=== PATIENT | male | born 1950 | race Caucasian/White ===

== ENCOUNTER 2020-11-05 02:33 | Inpatient (IN) | payer MEDICARE, SELFPAY ==
[2020-11-05] VITALS (83 sets, daily range): BP systolic 65–141; BP diastolic 51–96; PULSE 0–137; RESP 15–42; TEMP 35.9–36.2; O2SAT 87–99; BMI 28.3
--- NOTE | ~2020-11-05 | XR_ITS ---
EXAMINATION: XR chest 1V portable INDICATION: Respiratory failure TECHNIQUE: Portable AP chest at 0549 hours COMPARISON: 11/05/2020 FINDINGS: The endotracheal tube ends approximately 1.1 cm above the terese. The nasogastric tube is i n the stomach. A right internal jugular central venous catheter ends with its tip in the right atrium . There is elevation of the right hemidiaphragm. Patchy bilateral airspace opacities have developed. There is no pleural effusion or pneumothorax. The cardiomediastinal silhouette is stable. Healed righ t clavicle and right rib fractures are noted. IMPRESSION: 1. Patchy bilateral airspace opacities, consistent with atelectasis versus pneumonia. Reviewed, dictated and finalized at location A. E COMPTROLLER IMPRESSION: 1. Patchy bilateral airspace opacities, consistent with atelectasis versus pneu monia.
--- NOTE | ~2020-11-05 | CT_ITS ---
EXAMINATION: CT brain wo con INDICATION: Altered mental status COMPARISON: None TECHNIQUE: Standard unenhanced head CT. The dose-length product (DLP) was 681.00 mGy-cm. The mA was a djusted according to patient size. Iterative reconstruction technique was employed. FINDINGS: There are areas of prior infarction in the occipital lobes and left basal ganglia. There is no acute intraparenchymal hemorrhage. No evidence of mass lesion. No evidence of acute infarction. T here is mild periventricular and subcortical hypodensity probably related to small vessel ischemic di sease. There is mild prominence of the sulci and ventricles related to cerebral atrophy. Intracranial calcified cerebral atherosclerosis is noted. There are no extra-axial collections. There is no mass effect or midline shift. The orbits and soft tissues are unremarkable. There is mild mucosal thicken ing of the paranasal sinuses. IMPRESSION: 1. Areas of prior reduction without acute intracranial abnormality. 2. Age related findings. Reviewed, dictated and finalized at location A. WALKER
--- NOTE | ~2020-11-05 | US_ITS ---
EXAMINATION: US renal BI EXAM DATE: 11/05/2020 14:43 INDICATION: Acute kidney insufficiency. TECHNIQUE: Multiple grayscale and Doppler images of the kidneys were obtained (by a technologist who performed the scan) and subsequently reviewed. Comparison is made to prior examination from 11/05/2020 . FINDINGS: Right kidney: There is normal contour and echogenicity. It measures 12.8 x 6.0 x 7.0 centimeters. Th ere is no nephrolithiasis. There is no hydronephrosis. Left kidney: There is normal contour and echogenicity. It measures 10.7 x 5.7 x 6.5 centimeters. The re is nephrolithiasis. There is no hydronephrosis. Bladder unremarkable. IMPRESSION: 1. Bilateral nephrolithiasis. 2. No hydronephrosis. Reviewed, dictated and finalized at location B. NE OILER
--- NOTE | ~2020-11-05 | XR_ITS ---
EXAMINATION: XR abdomen NG/feed tube insert EXAM DATE: 11/05/2020 08:30 INDICATION: NG insertion. TECHNIQUE: Frontal projection(s) of the abdomen for interpretation. There is no prior study for [facility]os[facility] edwards. FINDINGS: Nasogastric tube and side-port both project over gastric bubble, adequate. Couple of left abdominal calcifications, large left nephrolithiasis identified on CT same date. Nonobstructive bowel gas pattern. There are mild bony degenerative changes. IMPRESSION: Feeding in position. Left nephrolithiasis. Reviewed, dictated and finalized at location B. RVISOR SHAVING AND SPLITTING
--- NOTE | ~2020-11-05 | XR_ITS ---
EXAMINATION: XR chest port-a-cath/central INDICATION: Central line and endotracheal tube insertion TECHNIQUE: Portable AP chest at 0629 hours COMPARISON: None available FINDINGS: The endotracheal tube ends 1.3 cm above the terese. A right internal jugular central venous catheter ends with its tip in the proximal right atrium. There is elevation of the right hemidiaphra gm. Linear opacities of the right lung base likely reflect atelectasis or scarring. There appears to be pleural thickening or small pleural effusion on the right. No acute airspace opacities are identif ied. There is no pneumothorax. Old right clavicle and right rib fractures are noted noted. IMPRESSION: 1. Endotracheal tube 1.3 cm above the terese. 2. Right internal jugular central venous catheter was tip in the right atrium. 3. Atelectasis versus scarring in the right lung base. Reviewed, dictated and finalized at location A. ETING RESEARCH INTERN
--- NOTE | ~2020-11-05 | CT_ITS ---
EXAMINATION: CT abdomen pelvis wo con EXAM DATE: 11/05/2020 07:59 INDICATION: Nausea and vomiting. TECHNIQUE: Spiral CT of the abdomen and pelvis was performed without contrast. Axial, coronal and s agittal images were reviewed. The dose-length product (DLP) for this examination was 1382.19 mGy-cm. The exposure was tailored according to patient size (auto mA exposure control), and iterative recon struction (ASIR) was used as additional dose reduction technique. There is no prior study for compar adam. FINDINGS: There is multi segmental right lower lobe atelectasis. Superimposed pneumonia also possible . There are liver and splenic granulomata. There is a right adrenal gland myelolipoma measuring 3.7 cm. Pancreas is unremarkable. The gallbladder is moderately distended. No calcified cholelithiasis o r pericholecystic inflammation. Sizable bilateral nephrolithiasis, larger stone burden on the left. N o ureteral stones or hydronephrosis. The prostate is unremarkable. The bladder is collapsed with Fol ey catheter balloon anchor inside. There is no retroperitoneal or pelvic lymphadenopathy. There is mild scattered arteriosclerotic disease. The appendix is normal. The stomach and small bowel are unremarkable. There is mild scattered coloni c diverticulosis. There is no adjacent inflammatory change to suggest diverticulitis. No free intra peritoneal gas. The heart is normal in size. There are no pericardial or pleural effusions. The l can bases are unremarkable. There are no osteoblastic or osteolytic lesions identified. There are ol d right rib fractures. IMPRESSION: 1. Multi segmental right basilar atelectasis and possibly superimposed pneumonia. 2. Moderately distended but otherwise unremarkable gallbladder. Consider ultrasound if indicated cli nically. 3. Bilateral nephrolithiasis. 4. Mild colonic diverticulosis. 5. Right adrenal myelolipoma. Reviewed, dictated and finalized at location B. UTER PERIPHERAL EQUIPMENT OPERATOR IMPRESSION: 1. Multi segmental right basilar atelectasis and possibly superimposed pneumon ia. 2. Moderately distended but otherwise unremarkable gallbladder. Consider ultra sound if indicated clinically. 3. Bilateral nephrolithiasis. 4. Mild colonic diverticulosis. 5. Right adrenal myelolipoma.
--- NOTE | ~2020-11-05 | US_ITS ---
EXAMINATION: US abdomen limited DATE: 11/05/2020 10:16 INDICATION: Right upper quadrant pain TECHNIQUE: Multiple grayscale and Doppler ultrasound images of the abdomen were obtained. COMPARISON: CT from today FINDINGS: The head and body of the pancreas are normal. The pancreatic tail is obscured by bowel gas. The liver is normal with normal echogenicity and echotexture. No surface nodularity. Normal hepatope patricia flow in the main portal vein. The gallbladder is distended. There are multiple stones in the gall bladder. No gallbladder wall thickening or pericholecystic fluid are seen. The normal common bile yunior t measures 5 mm. Sonographic Roche sign cannot assess due to patient sedation and intubation. IMPRESSION: 1. Cholelithiasis and gallbladder distention without definite evidence of wall thickening or perichol ecystic fluid. Findings are equivocal for cholecystitis. Consider nuclear hepatobiliary scan if there is high clinical concern for cholecystitis. Reviewed, dictated and finalized at location A. BOX INSPECTOR IMPRESSION: 1. Cholelithiasis and gallbladder distention without definite evidence of wall thickening or pericholecystic fluid. Findings are equivocal for cholecystitis. Consider nuclear hepatobiliary scan if there is high clinical concern for eli cystitis.
--- NOTE | 2020-11-05 02:39 | ED.NAVMDI ---
HPI - Nausea/Vomiting/Diarrhea General Chief complaint: Nausea/Vomiting/Diarrhea Stated complaint: brown emesis all day Time Seen by Provider: 11/05/20 07:26 History of Present Illness HPI Narrative: History limited by mental status. 10 yo male w/ h/o TBI brought in to the ED by EMS from [facility] to the ED for nausea and vomiting. They report shaina he has been having episodes of brown emesis throughout the day yesterday. He reportedly received zofran around 8 PM. On arrival to the ED he denies any complaints. He is not able to provide any history. A&O x1 at baseline. Related Data Home Medications Medication Instructions Recorded Confirmed albuterol sulfate [Ventolin HFA] INHALATION 11/05/20 aspirin 81 mg PO DAILY 11/05/20 atorvastatin 40 mg PO DAILY 11/05/20 lisinopril 10 mg PO DAILY 11/05/20 metformin 500 mg PO BID 11/05/20 tamsulosin [Flomax] 0.4 mg PO 11/05/20 Allergies Allergy/AdvReac Type Severity Reaction Status Date / Time NKDA Allergy Unknown Other Uncoded 11/05/20 02:43 NKFA Allergy Unknown Other Uncoded 11/05/20 02:43 NA Allergy Other Uncoded 11/05/20 02:43 Review of Systems Review of Systems: ROS unobtainable: Yes unobtainable due to mental status Cardiovascular: Cardiovascular: Denies chest pain Respiratory: Respiratory: Denies dyspnea Gastrointestinal: Gastrointestinal: Denies nausea PMFSH Past Medical History Medical History (Updated 11/05/20 @ 13:42 by Cyndi Haley NP) BPH (benign prostatic hyperplasia) DM2 (diabetes mellitus, type 2) History of fracture of clavicle History of humerus fracture History of rib fracture Hyperlipidemia TBI (traumatic brain injury) Family History Family History Other Unknown family medical history Social History Social History (Updated 11/05/20 @ 13:45 by Cyndi Haley NP) Social History: patient is listed as being . He is from [facility] otherwise known as [facility]. smoking history and drinking history unknown. Unable to obtain information from the patient as he is intubated. On his half-way papers he is listed as a full code. Smoking status: Unknown if ever smoked Alcohol intake: unknown Substance use: unknown Gender identity (if verbalized by the patient): Male Sexual Orientation (if Verbalized by the Patient): Straight or Heterosexual Spiritual care concerns: No Exam Const: General: no acute distress, alert and ill appearing Nutritional Appearance: obese HENMT: Head: normal to inspection Eyes: Pupils: Equal, round and reactive pupils present Resp: Effort & Inspection: normal respiratory effort Auscultation: clear to auscultation bilaterally Cardio: Rate: tachycardic Rhythm: regular rhythm GI: GI Palp: Yes Soft to palpation and No Tenderness to palpation present (GI) Skin: General skin exam: pallor Other: extensive scarring to abdomen Neuro: General: moves all extremities and CN's II-XI intact bilaterally Extrem: General: normal to inspection Psych: Other: Flat affect Course Course Emergency Course: He initially looked ill, but stable. Later he suddenly became tachycardic and tachypneic and had a sudden drop in BP. ABG showed partially compensated metabolic acidosis. He had a decline in mental status and was no longer adequately protecting his airway, so He was intubated for airway protection. A central line was placed and Levophed was started. Vital Signs Vital signs: Vital Signs Temperature 35.9 C L 11/05/20 02:36 Pulse Rate 108 H 11/05/20 02:36 Respiratory Rate 19 11/05/20 02:36 Blood Pressure 113/80 11/05/20 02:36 Pulse Oximetry 90 11/05/20 02:36 Temperature 36.2 C L 11/05/20 20:00 Pulse Rate 134 H 11/05/20 22:00 Respiratory Rate 24 H 11/05/20 22:00 Blood Pressure 105/92 H 11/05/20 22:21 Pulse Oximetry 96 11/05/20 22:00 Procedures Central Line Placement Right IJ: Central
[2020-11-05] MEDS: SODIUM CHLORIDE 0.9% IV 1,000 ML 999 ML IV CONT ×4 (02:51→15:20)
[2020-11-05] MEDS: ONDANSETRON INJ 4 MG/2 ML VIAL IV PUSH ×2 (02:52→05:12)
[2020-11-05 03:27] LABS: Basophils Percent Auto 0.2 % (0.2-1.2); Eosinophils Percent Auto 0.1 % (0-4.4); Hematocrit 52.4 % (42.0-52.0); Hemoglobin 17.6 g/dL (14.0-18.0); Immature Granulocyte Absolute 0.07 K/mm3 (0.00-0.031); Immature Granulocyte Percent A 0.5 % (0-0.5); Lymphocytes Absolute Auto 0.74 K/mm3 (0.9-3.2); Lymphocytes Percent Auto 5.2 % (18.3-44.2); Mean Corpuscular HGB Conc 33.6 g/dl (32-36); Mean Corpuscular Hemoglobin 28.5 pg (26-34); Mean Corpuscular Volume 84.9 fl (80-100); Mean Platelet Volume 11.7 fl (7.4-10.4); Monocytes Absolute Auto 0.9 K/mm3 (0.1-0.6); Monocytes Percent Auto 6.6 % (2.6-8.5); Neutrophils Absolute Auto 12.4 K/mm3 (1.3-6.7); Neutrophils Percent Auto 87.4 % (45.5-73.1); Platelet Count Result 244 k/mm3 (150-375); Red Blood Count 6.17 M/mm3 (4.6-6.20); Red Cell Distribution Width 14.4 % (11.5-14.5); White Blood Count 14.2 K/mm3 (4.5-10.0)
[2020-11-05 03:40] LABS: Add Urine Microscopic? YES; Appearance Urine Cloudy (Clear); Bacteria Urine 4+ /hpf; Bilirubin Urine Negative (Negative); Blood Urine 3+ (Negative); Glucose Urine UA Negative (Negative); Ketones Urine Negative (Negative); Leukocyte Esterase Ur 3+ LEU/UL (Negative); Nitrate Urine Negative (Negative); Protein Urine 2+ mg/dL (Negative); RBC Urine >75 /hpf (0-2); Specific Grav Ur 1.015 (1.001-1.035); Urobilinogen Urine Negative mg/dL (<2.0); WBC Urine >75 /hpf
[2020-11-05 03:42] LABS: Color Urine Yellow (Yellow)
--- NOTE | 2020-11-05 04:18 | ECG_ITS ---
Measurements Intervals [place] Rate: 122 P: 113 MS: 173 QRS: 0 QRSD: 128 T: -12 QT: 312 QTc: 445 Interpretive Statements SINUS TACHYCARDIA RIGHT BUNDLE BRANCH BLOCK BASELINE WANDER- V3-V6 ABNORMAL ECG Electronically Signed On 11-05-2020 12:24:56 ENGINEERING SUPERVISOR by Hai Hilton D.O.
--- NOTE | 2020-11-05 04:20 | PC.NURSE ---
Pt noted to have increased wob, mottling to bilateral legs, and sinus tach on the monitor. erp notified. erp Dr. Allen at bedside. ekg and abg verbal order, sinus tach on ekg.
[2020-11-05 04:44] LABS: Alveolar/Arterial O2 Gradient 91.3 mmHg; Base Excess ABG -15.7 mEq/l (+/-2.0); Fractional Inspired Oxygen 28 %; HCO3 ABG 8.2 mEq/l (22.0-26.0); Oxygen Content ABG 22.1 %vol (16.0-22.0); Oxygen Saturation ABG 95.8 % (95.0-100.0); Oxyhemoglobin 94.4 % THb (90.0-100.0); PO2 ABG 87.2 mmHg (80.0-100.0); PO2 FiO2 Ratio Arterial Blood 3.11 %; Total Hemoglobin 16.6 g/dL (12.0-18.0)
[2020-11-05 04:45] LABS: Device NASAL CANNULA; Modified Allen's Test Pass; PCO2 ABG 17.9 mmHg (35.0-45.0); Site Drawn RIGHT RADIAL; pH ABG 7.278 (7.350-7.450)
--- NOTE | 2020-11-05 04:51 | PC.NURSE ---
erp dr ayala at bedside. verbal order for blood cultures and lactic. Current plan to hold CT until blood work results.
--- NOTE | 2020-11-05 04:59 | PC.NURSE ---
blood cultures x 2 obtained. ok to start abx by dr ayala.
[2020-11-05 05:03] LABS: Estimated CRCL calculation 6 ml/min; Estimated Glomerular Filt Rate 5
--- NOTE | 2020-11-05 05:03 | PC.NURSE ---
SOY Allen at bedside for Central Line placement.
[2020-11-05] MEDS: KETAMINE HCL (*CRX) 500 MG/10 ML VIAL 100 MG IV PUSH (05:16)
[2020-11-05] MEDS: ROCURONIUM BROMIDE 50 MG/5 ML VIAL 100 MG IV PUSH (05:19)
[2020-11-05 05:22] LABS: Alanine Aminotransferase 21 U/L (4-50); Alkaline Phosphatase 93 U/L (38-126); Anion Gap 25 mmol/L (8-16); Aspartate Amino Transferase 23 U/L (17-59); Bilirubin,Total 0.8 mg/dL (0.2-1.3); Blood Urea Nitrogen 178 mg/dL (9-20); Calcium 9.3 mg/dL (8.4-10.2); Carbon Dioxide 6 mmol/L (22-30); Chloride 108 mmol/L (98-107); Estimated CRCL calculation 7 ml/min; Estimated Glomerular Filt Rate 5; Glucose 161 mg/dL (75-110); Lipase 254 U/L (23-300); Potassium 5.7 mmol/L (3.4-5.0); Sodium 139 mmol/L (137-145)
[2020-11-05 05:27] LABS: Lactic Acid Reflex 3.9 mmol/L (0.7-2.1)
--- NOTE | 2020-11-05 05:32 | PC.NURSE ---
0510 - ERP Dr. Allen at bedside. 0513 - 16f chavez placed rt leg 0516 - 100mg ketamine given 0519 - 100mg Rocuronium given 0519 - NS 1 Liter Bolus started 0522 - ETT placed; 25 @ Teeth, 26 @ Lip, Color Change noted
--- NOTE | 2020-11-05 05:38 | PC.NURSE ---
rn at bedside, unable to place ng or og tube at this time.
--- NOTE | 2020-11-05 05:39 | PC.NURSE ---
erp dr ayala made aware of inability to obtain ng/og. ok to wait to this time
--- NOTE | 2020-11-05 05:45 | PC.NURSE ---
verbal order for levophed from dr ayala while he is inserting central line.
[2020-11-05] MEDS: SODIUM CHLORIDE 0.9% IV 1,000 ML 999 ML (05:56)
[2020-11-05] MEDS: NOREPINEPHRINE 8 MG/D5W 250 ML 8 MG/250 ML BAG 9.38 MG IV CONT (06:04)
--- NOTE | 2020-11-05 06:42 | PC.NURSE ---
This RN called and updated Shira, daughter. She is agreeable to continuing current treatment at this time and wants to be notified when he is transferred to the ICU.
--- NOTE | 2020-11-05 06:43 | PC.NURSE ---
Nursing facility called and was updated on patients impending admission to ICU
--- NOTE | 2020-11-05 07:13 | PC.NURSE ---
Patient care assumed at this time, report given by GALILEO Hinton.
--- NOTE | 2020-11-05 07:15 | PC.NURSE ---
rn report given to sukumar.
[2020-11-05] MEDS: SODIUM BICARBONATE 8.4% 50 MEQ/50 ML SYRINGE 100 MEQ IV PUSH ×2 (08:11→10:33)
[2020-11-05 08:14] LABS: Reflex Lactic Acid Yes or No Add Lactic
[2020-11-05 08:54] LABS: Lactic Acid 4.1 mmol/L (0.7-2.1)
--- NOTE | 2020-11-05 09:09 | ECG_ITS ---
Measurements Intervals [place] Rate: 121 P: 29 LA: 145 QRS: 7 QRSD: 129 T: -9 QT: 318 QTc: 452 Interpretive Statements SINUS TACHYCARDIA RIGHT BUNDLE BRANCH BLOCK ABNORMAL ECG Electronically Signed On 11-05-2020 12:25:14 STATION ATTENDANT by Hai Hilton D.O.
[2020-11-05] MEDS: VASOPRESSIN INJ 100 UNITS in DEXTROSE 5% 95 ML IV CONT (10:03)
[2020-11-05] MEDS: SODIUM BICARBONATE 8.4% 150 MEQ in WATER, STERILE FOR INJECTION 950 ML IV CONT ×3 (10:03→23:45)
[2020-11-05] MEDS: HYDROCORTISONE SODIUM SUCCINATE 100 MG/2 ML VIAL IV PUSH ×2 (10:33→17:13)
[2020-11-05] MEDS: PANTOPRAZOLE SODIUM IV 40 MG VIAL IV PUSH ×2 (10:33→20:03)
[2020-11-05] MEDS: CEFEPIME 0.5 GM in DEXTROSE 5% IN WATER 50 ML IVPB ×2 (10:42→20:04)
[2020-11-05 10:50] LABS: Hematocrit 43.7 % (42.0-52.0); Hemoglobin 14.5 g/dL (14.0-18.0)
--- NOTE | 2020-11-05 10:56 | WPDCNINT ---
Assessment and Plan Assessment and plan (1) Acute respiratory failure: Code(s): J96.00 - Acute respiratory failure, unspecified whether with hypoxia or hypercapnia Status: Acute Assessment and Plan: Acute Respiratory failure secondary to septic shock, pneumonia, altered mental status Continue full mechanical ventilation support to prevent hypoxemia/hypercarbia and end organ damage. ABG and PCXR reviewed and will repeat in am. Low tidal volume ventilation strategy to prevent volutrauma (2) Septic shock: Code(s): A41.9 - Sepsis, unspecified organism; R65.21 - Severe sepsis with septic shock Status: Acute Assessment and Plan: Secondary to UTI and pneumonia Levophed titration to maintain map Add vasopressin and stress dose hydrocortisone Culture sent and pending Empiric vanc and cefepime Monitor lactic acid level (3) REYNA (acute kidney injury): Code(s): N17.9 - Acute kidney failure, unspecified Status: Acute Assessment and Plan: Prerenal versus ATN CT scan showed nephrolithiasis but no hydronephrosis Check CK Aggressive volume resuscitation Monitor urine output electrolytes and creatinine Nephrology consultation May need hemodialysis (4) Hyperkalemia: Code(s): E87.5 - Hyperkalemia Status: Acute Assessment and Plan: Received IV fluid bolus Repeat ordered and pending (5) Metabolic acidosis: Code(s): E87.2 - Acidosis Status: Acute Assessment and Plan: Secondary to REYNA and sepsis IV bicarbonate push and IV fluids with bicarb (6) Encephalopathy: Code(s): G93.40 - Encephalopathy, unspecified Status: Acute Assessment and Plan: Baseline history of traumatic brain injury. This could be toxic metabolic encephalopathy and uremic Head CT is negative He did get sedatives in the ED for intubation but is currently off sedation Monitor Check ammonia (7) Suspected COVID-19 virus infection: Code(s): Z20.822 - Contact with and (suspected) exposure to COVID-19 Status: Acute Assessment and Plan: Patient has history of COVID-19 although details and date is not known at this time Currently he is on isolation and COVID PCR is pending (8) Upper GI bleed: Code(s): K92.2 - Gastrointestinal hemorrhage, unspecified Status: Acute Assessment and Plan: Patient had brownish suction from his NG tube. Hemoglobin is high which is likely from hemoconcentration from dehydration Monitor serial hemoglobin PPI GI consult (9) Cholelithiasis: Code(s): K80.20 - Calculus of gallbladder without cholecystitis without obstruction Status: Acute Assessment and Plan: RUQ US IMPRESSION: 1. Cholelithiasis and gallbladder distention without definite evidence of wall thickening or pericholecystic fluid. Findings are equivocal for cholecystitis. Consider nuclear hepatobiliary scan if there is high clinical concern for cholecystitis. LFTs normal No intervention at this time Additional Plan DVT prophylaxis -SCDs Stress ulcer prophylaxis -PPI Nutrition -NPO Code Status - Full Code Contact listed and assisted paperwork is Shira avitia was patient's daughter [phone] Total Critical Care Time - 40 minutes Due to a high probability of clinically significant, life threatening deterioration, the patient required my highest level of preparedness to intervene emergently and I personally spent this critical care time directly and personally managing the patient. This critical care time included obtaining a history; examining the patient; pulse oximetry; ordering and review of studies; arranging urgent treatment with development of a management plan; evaluation of patient's response to treatment; frequent reassessment; and discussions with other providers. It was exclusive of separately billable procedures and treating other patients and teaching time. Please see Assessment and Plan section and the r
[2020-11-05 11:04] LABS: Lactic Acid Reflex 4.5 mmol/L (0.7-2.1)
[2020-11-05 11:10] LABS: Anion Gap 17 mmol/L (8-16); Carbon Dioxide 17 mmol/L (22-30); Chloride 107 mmol/L (98-107); Estimated CRCL calculation 7 ml/min; Estimated Glomerular Filt Rate 6; Glucose 188 mg/dL (75-110); Potassium 5.4 mmol/L (3.4-5.0); Sodium 141 mmol/L (137-145)
[2020-11-05 11:14] LABS: Troponin I 0.038 ng/mL (0.000-0.034)
[2020-11-05 11:24] LABS: Blood Urea Nitrogen 179 mg/dL (9-20)
[2020-11-05 11:35] LABS: Creatine Kinase 31 U/L (55-170)
--- NOTE | 2020-11-05 11:46 | ADMGEN ---
This patient, Armando Zhao, was admitted to Intensive Care Unit-3. Patient/family oriented to hospital policies and general routines including ID bracelet, bed and alarms, visiting hours, pain management, procedures, bathroom and other care routines, personal items, smoking policy, room service/diet, and visiting hours. Information on how to activate the Rapid Response Team has been discussed. Patient/Family are encouraged to report perceived risks to care and to ask questions if they do not understand what they are told or what they should do.
[2020-11-05] MEDS: dexmedeTOMIDine 400 MCG/100 ML 400 MCG/100 ML BAG 9.09 MCG IV CONT (12:07)
[2020-11-05] MEDS: SODIUM POLYSTYRENE SULFONONATE 15 GM/60 ML BTL 30 GM PO (12:08)
[2020-11-05] MEDS: NOREPINEPHRINE 8 MG/D5W 250 ML 8 MG/250 ML BAG 26.25 MG IV CONT (12:10)
[2020-11-05 12:29] LABS: Alveolar/Arterial O2 Gradient 289.9 mmHg; Base Excess ABG -8.5 mEq/l (+/-2.0); Carboxyhemoglobin 0.3 % THb (0-2.0); Fractional Inspired Oxygen 60 %; HCO3 ABG 16.6 mEq/l (22.0-26.0); Methemoglobin ABG 0.4 %THb (0-1.5); Oxygen Content ABG 19.7 %vol (16.0-22.0); Oxygen Saturation ABG 97.2 % (95.0-100.0); Oxyhemoglobin 96.1 % THb (90.0-100.0); PCO2 ABG 33.3 mmHg (35.0-45.0); PO2 ABG 101.3 mmHg (80.0-100.0); PO2 FiO2 Ratio Arterial Blood 1.69 %; Reduced Hemoglobin 3.2 %THb (0-5.0); Total Hemoglobin 14.5 g/dL (12.0-18.0); pH ABG 7.315 (7.350-7.450)
[2020-11-05 12:31] LABS: Arterial Blood Gas PEEP 8 cmH2O; Arterial Blood Gas Tidal Volume 410 ml; Arterial Blood Gas Vent Mode CMV; Arterial Blood Gas Ventilator rate 18 /MIN; Device VENTILATOR; Site Drawn LEFT BRACHIAL
--- NOTE | 2020-11-05 12:40 | WPDGICN ---
Assessment and Plan Assessment and plan (1) Upper GI bleed: Code(s): K92.2 - Gastrointestinal hemorrhage, unspecified Status: Acute Assessment and Plan: Patient presented with coffee-ground emesis for 1 day. Despite this is hemoglobin remains stable in somewhat high suggesting dehydration. I suspect this is related to his profound azotemia and renal failure. suspect patient has stress gastritis on this basis. Plan is to start patient on acid suppression therapy. Continue monitor hemoglobin. Invasive testing should be deferred unless his hemoglobin were to drop precipitously. We will follow along with you. (2) Cholelithiasis: Code(s): K80.20 - Calculus of gallbladder without cholecystitis without obstruction Status: Acute Assessment and Plan: Gallstones identified by CT scan and ultrasound. But no associated findings to suggest cholecystitis. Should patient become more stable a HIDA scan can certainly be performed to a further investigate whether cholecystitis is present. (3) Acute respiratory failure: Code(s): J96.00 - Acute respiratory failure, unspecified whether with hypoxia or hypercapnia Status: Acute Assessment and Plan: Patient intubated in the emergency room because of respiratory difficulties. Currently unable to answer questions. Concern over possible underlying pneumonia or COVID infection and for these reasons COVID is being investigated. Continue supportive care per line construction engineer service (4) REYNA (acute kidney injury): Code(s): N17.9 - Acute kidney failure, unspecified Status: Acute Assessment and Plan: patient has rather profound renal failure with elevated creatinine greater than 9. Electrolyte disturbance on this basis. Likely this contributes to his coffee-ground emesis and stress gastritis. Rehydration in progress further recommendations per Nephrology service. (5) Septic shock: Code(s): A41.9 - Sepsis, unspecified organism; R65.21 - Severe sepsis with septic shock Status: Acute (6) TBI (traumatic brain injury): Code(s): S06.9X9A - Unspecified intracranial injury with loss of consciousness of unspecified duration, initial encounter Status: Inactive Assessment and Plan: Patient is a history of traumatic pain injury the circumstances are unclear his baseline is also unclear. Currently resident of care home because of this GI Consult Note Consult date/time: 11/05/20 12:40 HPI: Armando Zhao is a 70 year old male I am asked to see at the request of the line construction engineer service. Patient apparently is a care home resident. Has a history of a traumatic brain injury in the past. He is currently intubated unable to give any additional history. Review of chart reveals that he apparently had significant vomiting that occurred most of the day yesterday. Brownish material was vomited. For this reason he was referred to the emergency room. He was found to be in respiratory distress and intubated. Laboratory testing reveals him to have a leukocytosis normal hemoglobin rather significant azotemia suggesting acute renal insufficiency. Urinalysis was consistent with a urinary tract infection. Gallstones were identified on CT scan. Patient is currently in isolation for concern over possible COVID infection. Review of Systems Review of Systems: ROS unobtainable: Yes unobtainable due to endotracheal tube PMFSH Past Medical History Medical History TBI (traumatic brain injury) Family History Family History Other Unknown family medical history Social History Social History Smoking status: Unknown if ever smoked Alcohol intake: unknown Substance use: unknown Gender identity (if verbalized by the patient): Male Sexual Orientation (if Verbaliz
--- NOTE | 2020-11-05 13:21 | PM.IMHP ---
H&P: HPI History of Present Illness Date/Time: 11/05/20 13:21 Chief Complaint: Respiratory distress Narrative: Armando Zhao is a 70 year old male Who resides at [facility]. He came to the emergency room with nausea and vomiting. He has been having episodes of brown emesis throughout the day yesterday. It was noted that the patient have a brown emesis in the emergency room as well. He also had 1 in ICU. The patient received Zofran around 8:00 p.m. and the arrive to emergency room he denied any complaints. He was not able to provide any history he was only alert orientated x1 at baseline. The patient has been on an aspirin but no anticoagulation the could tell. Patient's blood pressure is 91/53 knee was afebrile. His pulse rate was 132. Pulse ox was 95. A right IJ line was inserted in the emergency room performed arm Emergently. he was also intubated in the emergency room. Patient had a traumatic catheterization and is draining tea-colored urine. Patient had greater than Sehy 5 WBCs in his urine and 4+ bacteria. Creatinine was noted to be 11.2. Patient's pH was 7.278. CO2 was 17.9. The patient has been on a Precedex drip and has been placed on a ventilator. The patient was placed in isolation for COVID surveillance. The patient had been given IV fluid bolus in the emergency room Zofran Rocephin, sodium bicarb, Vanco, cefepime and sodium bicarb. His lactic was 3.9 than 4.1 and then 4.5. Potassium 5.4. Creatinine did come down to 9.5 with a GFR 7. Troponin 0.038. Abdominal ultrasound was read as cholelithiasis and gallbladder distention without definite evidence of wall thickening or pericholecystic fluid. Findings are equivocal for cholecystitis. On abdominal x-ray for NG tube the feeding tube was in position and the left the Nephroliasus was noted. abdominal pelvis CT was read as multiple segmental right basilar atelectasis and possibly superimposed pneumonia. Moderately distended but otherwise unremarkable gallbladder. Bilateral nephrolithiasis. Mild colonic diverticulosis. Right adrenal myolipoma. Head CT was read as area of prior reduction without acute intracranial abnormality. Age-related findings. Chest x-ray was read as endotracheal tube 1.3 cm above the terese. right internal jugular central venous catheter with tip in the right atrium. Atelectasis versus scarring in the right lung base. Review of Systems Review of Systems: ROS unobtainable: Yes unobtainable due to endotracheal tube PMFSH Past Medical History Medical History (Updated 11/05/20 @ 13:42 by Cyndi Haley NP) BPH (benign prostatic hyperplasia) DM2 (diabetes mellitus, type 2) History of fracture of clavicle History of humerus fracture History of rib fracture Hyperlipidemia TBI (traumatic brain injury) Family History Family History Other Unknown family medical history Social History Social History (Updated 11/05/20 @ 13:45 by Cyndi Haley NP) Social History: patient is listed as being . He is from [facility] otherwise known as [facility]. smoking history and drinking history unknown. Unable to obtain information from the patient as he is intubated. On his skilled nursing papers he is listed as a full code. Smoking status: Unknown if ever smoked Alcohol intake: unknown Substance use: unknown Gender identity (if verbalized by the patient): Male Sexual Orientation (if Verbalized by the Patient): Straight or Heterosexual Spiritual care concerns: No Meds Home Medications and Allergies Home Medications Medication Instructions Recorded Confirmed Type albuterol sulfate [Ventolin HFA] INHALATION 11/05/20 History aspirin 81 mg PO DAILY 11/05/20 History atorvastatin 40 mg PO DAILY 11/05/20 History lisinopril 10 mg PO DAILY 11/05/20 History metformin 500 mg PO BID 11/05/20 History tamsulosin [Flomax] mg PO 11/05/20 History
[2020-11-05] MEDS: MORPHINE SULFATE (*CRX) 2 MG/ML INJ IV PUSH ×2 (14:34→23:59)
[2020-11-05] MEDS: LORazepam INJ (*CRX) 2 MG/ML VIAL IV PUSH (15:19)
[2020-11-05 16:04] LABS: Hematocrit 38.4 % (42.0-52.0); Hemoglobin 12.8 g/dL (14.0-18.0)
[2020-11-05] MEDS: EPINEPHrine INJ 1 MG in DEXTROSE 5% IN WATER 250 ML 15.06 MG IV CONT (16:06)
[2020-11-05 16:07] LABS: Hemoglobin A1C 7.1 % (<5.7)
[2020-11-05 16:11] LABS: Ammonia < 9 umol/L (9-30)
[2020-11-05 16:14] LABS: Lactic Acid Reflex 4.3 mmol/L (0.7-2.1)
[2020-11-05 16:25] LABS: Troponin I 0.037 ng/mL (0.000-0.034)
--- NOTE | 2020-11-05 17:05 | PM.CNNEP ---
Assessment and Plan Assessment and plan (1) REYNA (acute kidney injury): Code(s): N17.9 - Acute kidney failure, unspecified Status: Acute Assessment and Plan: unclear what baseline creatinine is etiology likely ATN from hemodynamic instability, infection, and possible pre-renal factors significant uremic burden noted with metabolic acidosis and rising K+ remains at high risk for needed renal replacement therapy/dialysis follow trend of repeat labs/urine output follow-up on urine electrolytes, imaging...etc (2) Septic shock: Code(s): A41.9 - Sepsis, unspecified organism; R65.21 - Severe sepsis with septic shock Status: Acute Assessment and Plan: as noted by admission presumably due to combination of UTI and pneumonia pressor therapy to maintain MAP follow culture data IV antibiotics (3) Acute respiratory failure: Code(s): J96.00 - Acute respiratory failure, unspecified whether with hypoxia or hypercapnia Status: Acute Assessment and Plan: due to combination of shock and altered mental status continue ventilator support (4) Metabolic acidosis: Code(s): E87.2 - Acidosis Status: Acute Assessment and Plan: due to a combination of REYNA/ARF and lactic acidosis trend lactic acid bicarbonate IVFs in attempt to compensate (5) Encephalopathy: Code(s): G93.40 - Encephalopathy, unspecified Status: Acute Assessment and Plan: has baseline history of traumatic brain injury perhaps worsened by acute illness I attempted to contact the domi's daughter regarding the patient's REYNA/ARF and my concerns that he may require renal replacement therapy/dialysis if things do not improve but I was only able to leave a voicemail. Will continue to follow. History of Present Illness Reason for Consult Consult date: 11/05/20 Reason for consult: acute renal failure Chief Complaint Chief complaint: Sepsis History of Present Illness Narrative: All the information I have obtained is from review of the electronic medical record and discussion with the medical personnel involved in the patient's care as he is unable to provide me with any history due to his current clinical status (he is intubated and sedated). The patient is a 70-year-old male with a past medical history as outlined below who initially presented to [facility] Emergency room for further evaluation of nausea and vomiting. Apparently, the patient's nursing facility noted that he had been having brown emesis today. unfortunately, the patient was unable to provide much assistance with regard to the events that led to his presentation to the emergency room as he was only alert and oriented x 1 which apparently is his baseline. Initially, he was hemodynamically stable although appeared quite ill. However, he suddenly became more tachycardic and tachypneic in association with a drop in his blood pressure. His mental status declined even further to the point where he was unable to protect his airway. Because of this, he was intubated for airway protection and placed on mechanical ventilation. He received IV fluids for his hypotension but as it continued to persist, a central line was placed and he was started on Levophed to maintain his mean arterial pressure. An NG-tube was placed given the history of suspected coffee-ground emesis as well. Laboratory findings at that time demonstrated a markedly elevated BUN and creatinine in association with a metabolic acidosis and evidence of pneumonia and a urinary tract infection by chest x-ray and urinalysis, respectively. Appropriate cultures were obtained and he was started on broad-spectrum IV antibiotic therapy with subsequent admission to the intensive care unit. Further testing at this time demonstrates a lactic acidosis on top of his acute kidney failure and he has been started on a bicarb drip an effort to compensate fo
[2020-11-05] MEDS: INSULIN ASPART (*BKC) 100 UNITS/ML SUB-Q ×2 (17:13→23:45)
[2020-11-05 17:18] LABS: Glucose Point of Care 226 (65-105)
[2020-11-05 17:44] LABS: SARS-CoV-2 RNA PCR Negative
[2020-11-05] MEDS: NOREPINEPHRINE 8 MG/D5W 250 ML 8 MG/250 ML BAG 46.88 MG IV CONT (18:03)
[2020-11-05] MEDS: ALBUTEROL SULFATE NEB 2.5 MG/0.5 ML INH INHALATION (19:49)
[2020-11-05] MEDS: IPRATROPIUM BR 0.02% INH SOLN 0.5 MG/2.5 ML VIAL INHALATION (19:49)
[2020-11-05 21:22] LABS: Hematocrit 39.6 % (42.0-52.0); Hemoglobin 13.4 g/dL (14.0-18.0)
[2020-11-05 21:34] LABS: Lactic Acid Reflex 5.2 mmol/L (0.7-2.1)
[2020-11-05 21:48] LABS: Troponin I 0.112 ng/mL (0.000-0.034)
[2020-11-05 23:41] LABS: Glucose Point of Care 262 (65-105)
[2020-11-05] MEDS: NOREPINEPHRINE 8 MG/D5W 250 ML 8 MG/250 ML BAG 33.75 MG IV CONT (23:44)
[2020-11-06] VITALS (54 sets, daily range): BP systolic 68–159; BP diastolic 46–79; PULSE 65–168; RESP 12–28; TEMP 36–37.2; O2SAT 72–97
--- NOTE | 2020-11-06 | ECHO_ITS ---
Patient Info Name: Armando Zhao Age: 70 years : 1950 Gender: Male Ht: 70 in Wt: 197 lbs BSA: 2.12 m2 HR: 60 bpm BP: 135 / 79 mmHg Heart Rhythm: Sinus Rhythm Technical Quality: Good Exam Date: 11/06/2020 9:18 AM Exam Location: [facility] Patient Status: Inpatient Admit Date: 11/05/2020 Staff Ordering Physician: Roman Rivas MD Chief Communications Officer: Tray Hall RDCS Attending Provider: Ammy Blake DO Exam Type: CA echo doppler color flow Study Info Indications R65.21 - Severe sepsis with septic shock Complete two-dimensional, color flow and Doppler transthoracic echocardiogram is performed. History/Risk Factors Sepsis; tachycardia, GIB, HTN, DM2. Summary 1. Complete two-dimensional, color flow and Doppler transthoracic echocardiogram is performed. 2. Left ventricular chamber dimension is normal. 3. Left ventricular systolic function is normal, estimated at 65-70%. 4. The left ventricular diastolic function is grade I diastolic dysfunction. 5. E/e' 8 is minimally elevated. 6. There is trace aortic valve regurgitation. 7. No pulmonary hypertension, estimated pulmonary arterial systolic pressure is 33 mmHg. 8. Normal inferior vena cava with <50% collapse upon inspiration consistent with elevated right atrial pressure, 10 mmHg. Left Ventricle E/e' 8 is minimally elevated. Left ventricular chamber dimension is normal. Left ventricular systolic function is normal, estimated at 65-70%. The left ventricular diastolic function is grade I diastolic dysfunction. Right Ventricle Right ventricular chamber dimension is normal. Right ventricular systolic function is normal. Left Atria Left atrial chamber dimension is normal. Right Atria Right atrial chamber dimension is normal. Aortic Valve The aortic valve is trileaflet. There is no aortic valve stenosis. There is trace aortic valve regurgitation. Pulmonic Valve There is no pulmonic regurgitation. Mitral Valve There is no mitral valve stenosis. There is no mitral valve regurgitation. Tricuspid Valve There is no tricuspid valve regurgitation. No pulmonary hypertension, estimated pulmonary arterial systolic pressure is 33 mmHg. Pericardium/Pleural There is no pericardial effusion. Inferior Vena Cava Normal inferior vena cava with <50% collapse upon inspiration consistent with elevated right atrial pressure, 10 mmHg. Aorta The aortic root size at the sinus of Valsalva is normal. Left Ventricular Outflow Tract Name Value Normal LVOT 2D LVOT Diameter 2.2 cm LVOT Doppler LVOT Peak Gradient 6 mmHg LVOT Mean Gradient 3 mmHg LVOT VTI 19 cm LVOT VTI/AV VTI Ratio 0.9 LVOT Stroke Volume 73 ml LVOT CO 4.8 l/min LVOT CI 2.3 l/min/m2 Mitral Valve Name Value Normal
[2020-11-06 00:19] LABS: Reflex Lactic Acid Yes or No Add Lactic
[2020-11-06 01:41] LABS: Troponin I 0.254 ng/mL (0.000-0.034)
[2020-11-06] MEDS: IPRATROPIUM BR 0.02% INH SOLN 0.5 MG/2.5 ML VIAL INHALATION ×3 (01:50→14:20)
[2020-11-06] MEDS: ALBUTEROL SULFATE NEB 2.5 MG/0.5 ML INH INHALATION ×3 (01:50→14:20)
[2020-11-06] MEDS: HYDROCORTISONE SODIUM SUCCINATE 100 MG/2 ML VIAL IV PUSH ×2 (02:30→09:04)
[2020-11-06 04:36] LABS: HCO3 ABG 22.5 mEq/l (22.0-26.0); PCO2 ABG 35.1 mmHg (35.0-45.0); PO2 ABG 95.8 mmHg (80.0-100.0); pH ABG 7.425 (7.350-7.450)
[2020-11-06 04:37] LABS: Base Excess ABG -1.2 mEq/l (+/-2.0); Carboxyhemoglobin 0.3 % THb (0-2.0); Methemoglobin ABG 0.4 %THb (0-1.5); Oxygen Content ABG 21.4 %vol (16.0-22.0); Oxygen Saturation ABG 97.5 % (95.0-100.0); Oxyhemoglobin 95.9 % THb (90.0-100.0); PO2 FiO2 Ratio Arterial Blood 2.39 %; Reduced Hemoglobin 3.4 %THb (0-5.0); Total Hemoglobin 15.8 g/dL (12.0-18.0)
[2020-11-06 04:38] LABS: Arterial Blood Gas PEEP 8 cmH2O; Arterial Blood Gas Tidal Volume 410 ml; Arterial Blood Gas Vent Mode CMV; Arterial Blood Gas Ventilator rate 18 /MIN; Device VENTILATOR; Fractional Inspired Oxygen 40 %; Modified Allen's Test Pass; Site Drawn LEFT RADIAL
[2020-11-06] MEDS: EPINEPHrine INJ 1 MG in DEXTROSE 5% IN WATER 250 ML 30.12 MG IV CONT (04:48)
[2020-11-06 05:19] LABS: Hematocrit 39.7 % (42.0-52.0); Hemoglobin 13.4 g/dL (14.0-18.0); Mean Corpuscular HGB Conc 33.8 g/dl (32-36); Mean Corpuscular Hemoglobin 28.1 pg (26-34); Mean Corpuscular Volume 83.2 fl (80-100); Mean Platelet Volume 12.2 fl (7.4-10.4); Platelet Count Result 138 k/mm3 (150-375); Red Blood Count 4.77 M/mm3 (4.6-6.20); Red Cell Distribution Width 14.3 % (11.5-14.5); White Blood Count 38.7 K/mm3 (4.5-10.0)
[2020-11-06 05:33] LABS: Lactic Acid Reflex 5.7 mmol/L (0.7-2.1)
[2020-11-06 05:35] LABS: Albumin Level 2.9 g/dL (3.5-5.1); Alkaline Phosphatase 86 U/L (38-126); Anion Gap 15 mmol/L (8-16); Aspartate Amino Transferase 50 U/L (17-59); Bilirubin,Total 0.7 mg/dL (0.2-1.3); Calcium 6.7 mg/dL (8.4-10.2); Carbon Dioxide 25 mmol/L (22-30); Chloride 95 mmol/L (98-107); Estimated CRCL calculation 9 ml/min; Estimated Glomerular Filt Rate 7; Glucose 238 mg/dL (75-110); Magnesium 1.2 mg/dL (1.6-2.3); Phosphorus 6.2 mg/dL (2.5-4.5); Potassium 5.7 mmol/L (3.4-5.0); Sodium 135 mmol/L (137-145)
[2020-11-06 05:43] LABS: Troponin I 0.358 ng/mL (0.000-0.034)
--- NOTE | 2020-11-06 06:01 | ECG_ITS ---
Measurements Intervals [place] Rate: 138 P: 218 GA: 126 QRS: -15 QRSD: 124 T: -4 QT: 316 QTc: 480 Interpretive Statements SUPRAVENTRICULAR TACHYCARDIA, CONSIDDER ECTOPIC ATRIAL TACHYCARDIA RIGHT BUNDLE BRANCH BLOCK LOW VOLTAGE- PRECORDIAL LEADS ABNORMAL ECG Electronically Signed On 11-06-2020 7:05:54 [employer] by Hai Hilton D.O.
[2020-11-06 06:15] LABS: Alanine Aminotransferase 46 U/L (4-50)
[2020-11-06 06:17] LABS: Blood Urea Nitrogen 153 mg/dL (9-20)
--- NOTE | 2020-11-06 07:11 | P.PCNBED_ITS ---
Procedures Arterial Line Arterial Line Date: 11/06/20 Arterial Line Time: 07:11 Discussed with the patient/family/POA, the placement of an arterial catheter, including its clinical necessity/indication and associated potential risks, benefits and alternatives.: Yes Time Out Performed: Yes Patient Position: supine Journeyman Carpenter Prep: sterile gown, sterile gloves, mask and hat Site: right and femoral Site Prep: chlorhexidine and sterile drape Technique used: ultrasound-guided Size (Gauge): 16 Length: 12 cm Closure/Dressing: suture, transparent dressing and securement product Patient tolerated procedure: well and no complications Complications: none Additional comments: Date of service was 11/06/2020 at 6:30 hrs.
[2020-11-06] MEDS: INSULIN ASPART (*BKC) 100 UNITS/ML SUB-Q ×2 (07:13→11:05)
[2020-11-06] MEDS: SODIUM BICARBONATE 8.4% 150 MEQ in WATER, STERILE FOR INJECTION 950 ML IV CONT ×2 (07:14→14:54)
[2020-11-06] MEDS: MAGNESIUM SULF 1 GM/D5W 100 ML 1 GM/100 ML BAG IVPB ×2 (07:14→08:30)
--- NOTE | 2020-11-06 07:32 | WPDGIPROGNO ---
Progress Note: A&P Assessment and Plan (1) Upper GI bleed: Code(s): K92.2 - Gastrointestinal hemorrhage, unspecified Status: Acute Assessment and Plan: Coffee-ground return via NG tube. But no decline in hemoglobin. Hemoglobin remains stable. Likely this represents stress gastritis. Plan to cover prophylactically with H2 diandra or PPI. Monitor hemoglobin. Once daily should be sufficient. No need to plan endoscopy on this patient. Primary treatment directed toward respiratory failure and acute kidney injury. (2) Acute respiratory failure: Code(s): J96.00 - Acute respiratory failure, unspecified whether with hypoxia or hypercapnia Status: Acute Assessment and Plan: Patient remains on ventilator. Intubated in the emergency room because of acute respiratory failure (3) REYNA (acute kidney injury): Code(s): N17.9 - Acute kidney failure, unspecified Status: Acute Assessment and Plan: Significant azotemia identified in the ER. It is uncertain what his baseline creatinine is period Nephrology service following. Patient also appears to have urosepsis suggesting concomitant urinary tract infection. (4) TBI (traumatic brain injury): Code(s): S06.9X9A - Unspecified intracranial injury with loss of consciousness of unspecified duration, initial encounter Status: Acute Assessment and Plan: Has a distant history of traumatic brain injury for which she is in the intermediate. The details are not immediately available. Baseline level of alertness not known. Subjective Date/time seen: 11/06/20 07:32 Patient remains intubated in the ICU. Found to be COVID negative. NG tube in place some coffee-ground return noted. No decline in hemoglobin evident. Review of Systems Review of Systems: ROS unobtainable: Yes unobtainable due to endotracheal tube Exam Narrative: Exam Narrative: Abdomen is soft and nontender. NG tube remains in place with coffee-ground return. Lungs with bilateral rhonchi. Heart without murmur. Objective Data Vital Signs Vital Signs: Vital Signs - 24 hr 11/05/20 07:59 11/05/20 08:01 11/05/20 08:06 Temperature Pulse Rate 137 H 128 H 129 H Respiratory Rate 18 18 18 Blood Pressure 87/57 L 88/60 L 93/58 L Pulse Oximetry 95 94 11/05/20 08:07 11/05/20 08:15 11/05/20 08:31 Temperature Pulse Rate 130 H 127 H 127 H Respiratory Rate 18 18 18 Blood Pressure 79/58 L 90/55 L 80/53 L Pulse Oximetry 93 93 93 11/05/20 08:39 11/05/20 08:58 11/05/20 09:01 Temperature Pulse Rate 127 H 125 H 125 H Respiratory Rate 18 18 18 Blood Pressure 79/58 L 86/59 L 86/60 L Pulse Oximetry 92 92 92 11/05/20 09:07 11/05/20 09:30 11/05/20 10:00 Temperature 96.7 F L Pulse Rate 123 H 131 H 118 H Respiratory Rate 18 18 Blood Pressure 87/56 L 93/68 L Pulse Oximetry 91 95 93 11/05/20 10:45 11/05/20 12:00 11/05/20 12:25 Temperature 97.2 F L Pulse Rate 108 H 103 H Respiratory Rate 26 H Blood Pressure 103/70 115/84 95/74 L Pulse Oximetry 93 11/05/20 12:36 11/05/20 14:00 11/05/20 14:15 Temperature Pulse Rate 101 H 98 Respiratory Rate 24 H Blood Pressure 76/60 L 65/53 L Pulse Oximetry 93 98 11/05/20 14:24 11/05/20 15:19 11/05/20 16:00 Temperature 97 F L Pulse Rate 132 H 132 H 129 H Respiratory Rate 24 H 22 H Blood Pressure 65/51 L Pulse Oximetry 95 98 11/05/20 16:06 11/05/20 16:17 11/05/20 16:57 Temperature Pulse Rate 125 H 130 H Respiratory Rate Blood Pressure 65/51 L 77/61 L Pulse Oximetry 96 11/05/20 17:11 11/05/20 17:53 11/05/20 18:00 Temperature Pulse Rate 79 133 H Respiratory Rate 23 H Blood Pressure 98/80 L 108/80 72/58 L Pulse Oximetry 98 11/05/20 18:01 11/05/20 18:07 11/05/20 18:23 Temperature Pulse Rate 132 H 70 78 Respiratory Rate Blood Pressure 72/58 L 109/85 97/75 L Pulse Oximetry 11/05/20 18:32 11/05/20 20:00 11/05/20 20:05 Tempera
[2020-11-06 08:12] LABS: Hepatitis B Surface Antigen Negative (Negative)
[2020-11-06 08:18] LABS: HAV RESULT Negative (Negative); Hepatitis B Core IgM Result Negative (Negative)
[2020-11-06] MEDS: CALCIUM CHLOR 1,000MG/100ML NS 1,000 MG/100 ML BAG 100 MG IVPB (08:26)
[2020-11-06 08:29] LABS: Hepatitis B Surface Anti Res Negative; Hepatitis C Virus Antibody Negative (Negative)
[2020-11-06] MEDS: PANTOPRAZOLE SODIUM IV 40 MG VIAL IV PUSH (08:29)
[2020-11-06] MEDS: SODIUM CHLORIDE 0.9% IV 500 ML IV CONT (08:35)
[2020-11-06] MEDS: NOREPINEPHRINE 8 MG/D5W 250 ML 8 MG/250 ML BAG 20.63 MG IV CONT (08:46)
--- NOTE | 2020-11-06 10:50 | PCDIET ---
Nutrition Follow-Up Complete: Nutrition Diagnosis: Inadequate oral intake related to oral intubation as evidenced by NPO status. Nutrition Goal: Patient to meet estimated nutritional needs. Goal in progress. MD order to initiate Nepro with goal of 40mL/hr. Given 22 hour/day infusion, this will provide 1584kcal and 71g protein which is appropriate at this time. Water flush ordered at 30mL every 4 hours. Last recorded weight is 101.7 kg which is increased from last review. +I/O. Bowel Motility: Last documented BM on 11/05/20 x 1. Labs Reviewed: Hgb (13.4), Hct (39.7), Glu (238), BUN (153), Cr (8.0), K (5.7), Na (135), Alb (2.9), Mariah Ca (7.58), PO4 (6.2), Mg (1.2) Meds Noted: Albumin, Albuterol, Epinephrine, Morphine, Levophed, Protonix, Solu Cortef, Imipenem, Vasopressin, Atrovent, Versed, Water/150mEq Sodium Bicarbonate at 150mL/hr, Calcium Chloride, Magnesium Sulfate, Kayexalate Additional Notes: No documented skin breakdown. Will continue to monitor with same goal. Nutrition Monitoring and Evaluation: Follow up every Monday/Monday.
[2020-11-06] MEDS: EPINEPHrine INJ 1 MG in DEXTROSE 5% IN WATER 250 ML 150.6 MG IV CONT (10:59)
[2020-11-06] MEDS: ALBUMIN HUMAN 25% 25 GM/100 ML 100 ML IVPB (11:05)
[2020-11-06 11:14] LABS: Glucose Point of Care 261 (65-105)
[2020-11-06] MEDS: EPINEPHrine INJ 4 MG in DEXTROSE 5% IN WATER 250 ML 38.1 MG IV CONT (12:05)
[2020-11-06] MEDS: METOPROLOL TARTRATE INJ 5 MG/5 ML VIAL (12:14)
[2020-11-06] MEDS: SODIUM POLYSTYRENE SULFONONATE 15 GM/60 ML BTL 30 GM PO (12:14)
--- NOTE | 2020-11-06 12:53 | WPDINTPN ---
Progress Note: A&P Assessment and Plan (1) Acute respiratory failure: Code(s): J96.00 - Acute respiratory failure, unspecified whether with hypoxia or hypercapnia Status: Acute Assessment and Plan: Acute Respiratory failure secondary to septic shock, pneumonia, altered mental status Continue full mechanical ventilation support to prevent hypoxemia/hypercarbia and end organ damage. ABG and PCXR reviewed and will repeat in am. Low tidal volume ventilation strategy to prevent volutrauma (2) Septic shock: Code(s): A41.9 - Sepsis, unspecified organism; R65.21 - Severe sepsis with septic shock Status: Acute Assessment and Plan: Secondary to E coli UTI UTI, E coli bacteremia and ? pneumonia Patient on multiple vasopressors including Levophed epi and vasopressin to maintain map Arterial line placed 11/06. Patient has received close to 5 L of fluid but there is pulse pressure variation on the A-line. I will give additional 500 cc bolus and also start on 25% albumin Continue stress dose hydrocortisone Change vancomycin and cefepime to imipenem to cover for ESBL E coli Patient has maintained high lactic acid level despite adequate volume resuscitation. Patient was on metformin prior to presentation and in light of Acute renal failure and metformin this may be the cause of his lactic acidosis (3) REYNA (acute kidney injury): Code(s): N17.9 - Acute kidney failure, unspecified Status: Acute Assessment and Plan: Prerenal versus ATN CT scan showed nephrolithiasis but no hydronephrosis CK was unremarkable and ultrasound also did not show any hydronephrosis Continue volume resuscitation with IV fluid with bicarb Although patient's urine output seems to be decent, due to persistent lactic acidosis, persistent mild hyperkalemia and worsening uremia I discussed with nephrology and we decided to initiate dialysis today but patient's family does not want hemodialysis (see below) Nephrology consultation (4) Hyperkalemia: Code(s): E87.5 - Hyperkalemia Status: Acute Assessment and Plan: Kayexalate 30 g per tube given IV bicarb and calcium given (5) Metabolic acidosis: Code(s): E87.2 - Acidosis Status: Acute Assessment and Plan: Secondary to REYNA and sepsis Improved with IV bicarbonate push and IV fluids with bicarb (6) Encephalopathy: Code(s): G93.40 - Encephalopathy, unspecified Status: Acute Assessment and Plan: Baseline history of traumatic brain injury. This could be toxic metabolic encephalopathy and uremic Head CT is negative He did get sedatives in the ED for intubation but is currently off sedation Monitor Normal ammonia (7) Suspected COVID-19 virus infection: Code(s): Z20.822 - Contact with and (suspected) exposure to COVID-19 Status: Acute Assessment and Plan: SARS-CoV-2 PCR sent and negative Patient is off of Airborne, Droplet and Contact Isolation (8) Upper GI bleed: Code(s): K92.2 - Gastrointestinal hemorrhage, unspecified Status: Acute Assessment and Plan: Patient had brownish suction from his NG tube. Hemoglobin is high which is likely from hemoconcentration from dehydration Monitor serial hemoglobin PPI GI following (9) Cholelithiasis: Code(s): K80.20 - Calculus of gallbladder without cholecystitis without obstruction Status: Acute Assessment and Plan: RUQ US IMPRESSION: 1. Cholelithiasis and gallbladder distention without definite evidence of wall thickening or pericholecystic fluid. Findings are equivocal for cholecystitis. Consider nuclear hepatobiliary scan if there is high clinical concern for cholecystitis. LFTs normal No intervention at this time Additional Plan DVT prophylaxis -SCDs Stress ulcer prophylaxis -PPI Nutrition -NPO Code Status - Full Code I spoke to patient's daughter Shira avitia today by phone multiple times. She I called her
--- NOTE | 2020-11-06 13:15 | PM.PNNEP ---
Progress Note: A&P Assessment and Plan (1) REYNA (acute kidney injury): Code(s): N17.9 - Acute kidney failure, unspecified Status: Acute Assessment and Plan: unclear what baseline creatinine is etiology likely ATN from hemodynamic instability, infection, and possible pre-renal factors significant uremic burden noted with metabolic acidosis and rising K+ follow-up on urine electrolytes, imaging...etc next step for treatment would be dialysis but family does not want to pursue such therapy (2) Septic shock: Code(s): A41.9 - Sepsis, unspecified organism; R65.21 - Severe sepsis with septic shock Status: Acute Assessment and Plan: as noted by admission presumably due to combination of UTI and pneumonia pressor therapy to maintain MAP follow culture data IV antibiotics (3) Acute respiratory failure: Code(s): J96.00 - Acute respiratory failure, unspecified whether with hypoxia or hypercapnia Status: Acute Assessment and Plan: due to combination of shock and altered mental status continue ventilator support (4) Metabolic acidosis: Code(s): E87.2 - Acidosis Status: Acute Assessment and Plan: due to a combination of REYNA/ARF and lactic acidosis trend lactic acid bicarbonate IVFs in attempt to compensate (5) Encephalopathy: Code(s): G93.40 - Encephalopathy, unspecified Status: Acute Assessment and Plan: has baseline history of traumatic brain injury perhaps worsened by acute illness As documented by Dr. Rivas, family does not want to pursue renal replacement therapy/dialysis and have changed his code status to DNR with the likely plan to transition to comfort measure given the patient's wishes as expressed to them regarding aggressiveness of care prior to this hospitalization. Will continue to follow from a distance. Subjective Date/time seen: 11/06/20 13:15 Clinical deterioration noted overnight -- lactic acid continues to rise and arterial line placed for better monitoring of hemodynamics; despite better urine output overnight, tentative plan was initiation of renal replacement therapy/dialysis but after discussion with family, this idea was abandoned given patient's wishes. Exam Narrative: Exam Narrative: General: ill appearing male intubated and sedated Heart: normal S1 and S2; no rub Lungs: coarse breath sounds Abdomen: soft, nontender, nondistended, positive bowel sounds Extremities: no cyanosis or clubbing; trace edema Skin: warm and dry Objective Data Vital Signs Vital Signs: Vital Signs Temp Pulse Resp BP Pulse Ox 11/06/20 13:00 75 19 11/06/20 12:44 75 128/65 11/06/20 12:15 160 H 20 11/06/20 12:14 168 H 11/06/20 12:05 93 121/65 11/06/20 12:00 37.2 C 75 23 H 145/72 H 96 11/06/20 11:57 92 23 H 11/06/20 11:46 86 131/67 11/06/20 11:41 103 H 86/52 L 11/06/20 11:33 100 24 H 94 11/06/20 11:31 98 88/52 L 11/06/20 10:59 81 125/60 11/06/20 10:58 83 115/59 L 11/06/20 10:44 75 91/50 L 11/06/20 10:43 88 92 11/06/20 10:35 79 92/53 L 11/06/20 10:26 82 107/55 L 11/06/20 10:18 78 106/56 L 11/06/20 10:17 74 108/57 L 11/06/20 10:12 77 116/60 11/06/20 10:04 75 134/68 11/06/20 10:00 79 21 H 128/65 93 11/06/20 09:52 76 11/06/20 09:48 79 140/70 11/06/20 09:28 66 159/75 H 11/06/20 09:10 69 135/79 11/06/20 09:04 65 146/68 H 11/06/20 08:47 69 141/68 H 11/06/20 08:46 69 140/68 11/06/20 08:44 69 140/68 11/06/20 08:43 75 111/59 L 11/06/20 08:24 76 114/61 11/06/20 08:00 36.9 C 92 16 151/72 H 94 11/06/20 07:53 80 94 11/06/20 07:52 82 25 H 11/06/20 06:00 139 H 25 H 92/63 L 97 11/06/20 05:30 140 H 11/06/20 04:48 137 H 26 H 11/06/20 04:42 137 H 94 11/06/20 04:00 37.2 C 136 H 28
[2020-11-06] MEDS: LORazepam INJ (*CRX) 2 MG/ML VIAL IV PUSH (17:35)
[2020-11-06] MEDS: MORPHINE SULFATE INJ (*CRX) 10 MG/ML AMP 5 MG IV PUSH (17:36)
--- NOTE | 2020-11-06 21:56 | PC.NURSE ---
Patient received from ICU into room 248 [id number]
[2020-11-06] MEDS: MORPHINE SULFATE (*CRX) 4 MG/ML INJ IV PUSH (22:21)
[2020-11-07 02:00] VITALS: BP 115/73; PULSE 94; RESP 16; TEMP 36.4; O2SAT 94
[2020-11-07 05:03] VITALS: BP 91/56; PULSE 93; RESP 18; TEMP 36; O2SAT 92
[2020-11-07 09:48] VITALS: PULSE 88; RESP 20; O2SAT 88
[2020-11-07] MEDS: LORazepam INJ (*CRX) 2 MG/ML VIAL IV PUSH ×2 (10:07→20:52)
--- NOTE | 2020-11-07 10:11 | WPDGIPROGNO ---
Subjective Date/time seen: 11/07/20 10:11 Patient now extubated on the floor. Nonverbal unable to give any history. No further vomiting. Review of Systems Review of Systems: ROS unobtainable: Yes unobtainable due to mental status Exam Narrative: Exam Narrative: Abdomen is soft nontender with no organomegaly. Objective Data Vital Signs Vital Signs: Vital Signs - 24 hr 11/06/20 10:12 11/06/20 10:17 11/06/20 10:18 Temperature Pulse Rate 77 74 78 Respiratory Rate Blood Pressure 116/60 108/57 L 106/56 L Pulse Oximetry 11/06/20 10:26 11/06/20 10:35 11/06/20 10:43 Temperature Pulse Rate 82 79 88 Respiratory Rate Blood Pressure 107/55 L 92/53 L Pulse Oximetry 92 11/06/20 10:44 11/06/20 10:58 11/06/20 10:59 Temperature Pulse Rate 75 83 81 Respiratory Rate Blood Pressure 91/50 L 115/59 L 125/60 Pulse Oximetry 11/06/20 11:31 11/06/20 11:33 11/06/20 11:41 Temperature Pulse Rate 98 100 103 H Respiratory Rate 24 H Blood Pressure 88/52 L 86/52 L Pulse Oximetry 94 11/06/20 11:46 11/06/20 11:57 11/06/20 12:00 Temperature 98.9 F Pulse Rate 86 92 75 Respiratory Rate 23 H 23 H Blood Pressure 131/67 145/72 H Pulse Oximetry 96 11/06/20 12:05 11/06/20 12:14 11/06/20 12:15 Temperature Pulse Rate 93 168 H 160 H Respiratory Rate 20 Blood Pressure 121/65 Pulse Oximetry 11/06/20 12:44 11/06/20 13:00 11/06/20 14:00 Temperature Pulse Rate 75 75 68 Respiratory Rate 19 22 H Blood Pressure 128/65 133/66 Pulse Oximetry 96 11/06/20 14:01 11/06/20 14:20 11/06/20 14:41 Temperature Pulse Rate 69 65 91 Respiratory Rate 25 H Blood Pressure 140/67 Pulse Oximetry 96 11/06/20 15:14 11/06/20 15:46 11/06/20 16:00 Temperature 98.4 F Pulse Rate 74 84 78 Respiratory Rate 19 19 18 Blood Pressure 114/56 L Pulse Oximetry 96 96 11/06/20 17:50 11/06/20 22:32 11/07/20 05:03 Temperature 96.8 F L 96.8 F L Pulse Rate 95 78 93 Respiratory Rate 12 16 18 Blood Pressure 77/46 L 91/56 L Pulse Oximetry 72 L 92 11/07/20 09:48 Temperature Pulse Rate 88 Respiratory Rate 20 Blood Pressure Pulse Oximetry 88 L Intake/Output Intake/Output: Intake & Output 11/04/20 11/05/20 11/06/20 11/07/20 23:59 23:59 23:59 23:59 Intake Total 7746 3882 0 Output Total 550 2550 700 Balance 7196 1332 -700 Meds/Results Medications: Active Medications Generic Name Dose Route Start Last Admin Trade Name Freq PRN Reason Stop Dose Admin Atropine Sulfate 1 - 2 drop 11/06/20 17:12 Atropine Sulfate 1% Ophth Soln 5 Ml Bottle SUBLINGUAL Q4H PRN Secretions Lorazepam 2 mg 11/06/20 17:12 11/07/20 10:07 Lorazepam Inj (*Crx) 2 Mg/Ml Vial IV PUSH 2 mg Q2H PRN Administration Anxiety/Comfort Morphine Sulfate 4 mg 11/06/20 17:17 11/06/20 22:21 Morphine Sulfate (*Crx) 4 Mg/Ml Inj IV PUSH 4 mg Q30M PRN Administration COMFORT Radiology Results: ITS Impressions Head CT 11/05/20 08:02 IMPRESSION: 1. Areas of prior reduction without acute intracranial abnormality. 2. Age related findings. Abdomen/Pelvis CT 11/05/20 08:10 IMPRESSION: 1. Multi segmental right basilar atelectasis and possibly superimposed pneumonia. 2. Moderately distended but otherwise unremarkable gallbladder. Consider ultrasound if indicated clinically. 3. Bilateral nephrolithiasis. 4. Mild colonic diverticulosis. 5. Right adrenal myelolipoma. Abdomen X-Ray 11/05/20 08:40 IMPRESSION: Feeding in position. Left nephrolithiasis. Abdomen Ultrasound 11/05/20 10:29 IMPRESSION: 1. Cholelithiasis and gallbladder distention without definite evidence of wall thickening or pericholecystic fluid. Findings are equivocal for cholecystitis. Consider nuclear hepatobiliary scan if there is high clinical concern for cholecystitis. Renal Ultrasound 11/05/20 14:45 IMPRESSION: 1. Bilateral nephro
--- NOTE | 2020-11-07 13:33 | PM.IMPN ---
Progress Note: A&P Assessment and Plan (1) Acute respiratory failure: Code(s): J96.00 - Acute respiratory failure, unspecified whether with hypoxia or hypercapnia Status: Acute Assessment and Plan: Pt is on comfort care measures (2) Septic shock: Code(s): A41.9 - Sepsis, unspecified organism; R65.21 - Severe sepsis with septic shock Status: Acute Assessment and Plan: Pt is on comfort care measures (3) REYNA (acute kidney injury): Code(s): N17.9 - Acute kidney failure, unspecified Status: Acute Assessment and Plan: Pt is on comfort care measures (4) Hyperkalemia: Code(s): E87.5 - Hyperkalemia Status: Acute Assessment and Plan: Pt is on comfort care measures (5) Encephalopathy: Code(s): G93.40 - Encephalopathy, unspecified Status: Acute Assessment and Plan: Patient has a history of having traumatic brain injury in the past. (6) Suspected COVID-19 virus infection: Code(s): Z20.822 - Contact with and (suspected) exposure to COVID-19 Status: Acute Assessment and Plan: negative (7) Upper GI bleed: Code(s): K92.2 - Gastrointestinal hemorrhage, unspecified Status: Acute Assessment and Plan: Pt is on comfort care measures (8) Cholelithiasis: Code(s): K80.20 - Calculus of gallbladder without cholecystitis without obstruction Status: Acute Assessment and Plan: Pt is on comfort care measures (9) Elevated troponin: Code(s): R77.8 - Other specified abnormalities of plasma proteins Status: Acute Assessment and Plan: Pt is on comfort care measures (10) DM2 (diabetes mellitus, type 2): Code(s): E11.9 - Type 2 diabetes mellitus without complications Status: Acute Assessment and Plan: Pt is on comfort care measures (11) BPH (benign prostatic hyperplasia): Code(s): N40.0 - Benign prostatic hyperplasia without lower urinary tract symptoms Status: Chronic Assessment and Plan: Pt is on comfort care measures (12) Hyperlipidemia: Code(s): E78.5 - Hyperlipidemia, unspecified Status: Acute Assessment and Plan: Pt is on comfort care measures Subjective Date/time seen: 11/07/20 13:33 Interval history: 70 year old male Who resides at [facility] with history of traumatic brain injury. He came to the emergency room with nausea and vomiting. He has been having episodes of brown emesis throughout the day yesterday. Pt was initially in ICU now is on comfort care. Pt was in icu for acute resp faliure, septic shock and ARF, Gi bleed. Pt is unresponsive opens eyes only to pain today, with labored breathing is imminent. Family opted for comfort care yesterday. Review of Systems Review of Systems: All systems reviewed & are unremarkable except as noted in HPI and below Exam Narrative: Exam Narrative: Pt is chronically ill responsive only to pain Resp: Auscultation: clear to auscultation bilaterally Percussion: percussion normal Cardio: Palpation: normal PMI Rate: regular rate Rhythm: regular rhythm Heart sounds: S1 normal heart sound present and S2 normal heart sound present Peripheral pulses: Peripheral pulses 2+ throughout GI: Inspection: normal to inspection Auscultation: normal bowel sounds Objective Data Vital Signs Vital Signs: Vital Signs - 24 hr 11/06/20 14:00 11/06/20 14:01 11/06/20 14:20 Temperature Pulse Rate 68 69 65 Respiratory Rate 22 H 25 H Blood Pressure 133/66 140/67 Pulse Oximetry 96 11/06/20 14:41 11/06/20 15:14 11/06/20 15:46 Temperature Pulse Rate 91 74 84 Respiratory Rate 19 19 Blood Pressure Pulse Oximetry 96 96 11/06/20 16:00 11/06/20 17:50 11/06/20 22:32 Temperature 36.9 C 36.0 C L Pulse Rate 78 95 78 Respiratory Rate 18 12 16 Blood Pressure 114/56 L 77/46 L Pulse Oximetry 96 72 L 11/07/20
[2020-11-07] MEDS: ATROPINE SULFATE 1% OPHTH SOLN 5 ML BOTTLE SUBLINGUAL ×2 (13:47→20:52)
[2020-11-07 14:00] VITALS: BP 115/73; PULSE 94; RESP 16; TEMP 36.4; O2SAT 94
[2020-11-07 22:01] VITALS: BP 100/77; PULSE 159; RESP 24; TEMP 36.3; O2SAT 74
[2020-11-08] VITALS: BP 100/74; PULSE 159; RESP 24; TEMP 36.3; O2SAT 74
[2020-11-08 04:57] VITALS: BP 90/57; PULSE 38; RESP 32; TEMP 37.1; O2SAT 75
[2020-11-08] MEDS: LORazepam INJ (*CRX) 2 MG/ML VIAL IV PUSH ×2 (05:23→10:06)
[2020-11-08 10:14] VITALS: RESP 48
--- NOTE | 2020-11-08 13:32 | PM.DDS ---
Discharge Sum: Prov Provider Primary care physician: Prince Doe, Admitting provider: Ammy Blake DO Consults: 11/05/20 Consult to Physician Routine Comment: CALLED OFFICE WITH CONSULT INFORMATION Consulting Provider: Emily Thapa call center receptionist/MD group to consult: Nephrology Reason for consultation: RENYA Has provider been notified: Yes Consult to Physician Routine Comment: called office with consult information Consulting Provider: Krystian Spencer call center receptionist/MD group to consult: GI Reason for consultation: UGI Bleed Has provider been notified: Yes Discharge Sum: Summary Date and Time Date of admission: 11/05/20 07:35 Date of : 12/09/20 Time of : 13:00 Summary Details: 70 year old male Who resides at [facility] with history of traumatic brain injury. He came to the emergency room with nausea and vomiting. He has been having episodes of brown emesis throughout the day yesterday. Pt was initially in ICU now is on comfort care. Pt was in icu for acute resp faliure, septic shock and ARF, Gi bleed. Pt is unresponsive opens eyes only to pain today, with labored breathing is imminent. Family opted for comfort care yesterday. Patient on 11/08 at 1300 Additional Data Confirmation of as documented by pronouncing clinician: no pulse, no respirations, no heart sounds and pupils fixed and dilated Family: not available Attending/PCP notified?: Yes Attending physician: Ammy Blake, DO Was code activated?: No Autopsy requested?: No pension examiner notified?: Yes Organ bank notified?: Yes Advance directives: No Hospice patient?: No
== END 2020-11-08 13:00 | disposition expired | DRG 871 ==
LOC: ANHED 07:26 → ANHICU 09:30 → ANH2MED 11-10 16:19 → ANHICU 11-10 16:19
PROVIDERS: Emergency Medicine; Internal Medicine; Internal Medicine Nephrology; Nurse Practitioner; Admitting Provider Internal Medicine; Emergency Provider Emergency Medicine; PCP General Practice; Visit Provider Family Medicine
DX: A41.9 Sepsis, unspecified organism (principal); R65.21 Severe sepsis with septic shock; J18.9 Pneumonia, unspecified organism; J96.00 Acute respiratory failure, unspecified whether with hypoxia or hypercapnia; N17.0 Acute kidney failure with tubular necrosis; K29.61 Other gastritis with bleeding; N39.0 Urinary tract infection, site not specified; E87.2 Acidosis; G93.49 Other encephalopathy; B96.20 Unspecified Escherichia coli [E. coli] as the cause of diseases classified elsewhere; Z20.822 Contact with and (suspected) exposure to COVID-19; E78.5 Hyperlipidemia, unspecified; I10 Essential (primary) hypertension; N40.1 Benign prostatic hyperplasia with lower urinary tract symptoms; E87.5 Hyperkalemia; K80.20 Calculus of gallbladder without cholecystitis without obstruction; Z66 Do not resuscitate; Z87.820 Personal history of traumatic brain injury
CPT/HCPCS: 31500; 36415; 36556; 36600; 51701; 70450; 71045; 74176; 76705; 76775; 80048; 80053; 80074; 81001; 82140; 82375; 82550; 82805; 83036; 83050; 83605; 83690; 83735; 84100; 84484; 85014; 85018; 85025; 85027; 86706; 86850; 86900; 86901; 87040; 87077; 87086; 87088; 87186; 93005; 93306; 94640; 96361; 96365; 96375; 96376; 99291; A9270; C1751; C9113; C9803; J0171; J0692; J0696; J0743; J1720; J1815; J2060; J2250; J2270; J2405; J3370; J3475; J7030; J7040; J7060; P9047; U0003; U0005